=== PATIENT | male | born 1960 | race Two or more races ===

== ENCOUNTER 2018-12-14 12:57 | Observation (INO) | payer MEDICAID, OTHER ==
[~2018-12-14] VITALS: Ht 157.5 cm; Wt 82.4 kg
--- NOTE | 2018-12-14 13:53 | NUR ---
CT PENDING: REGISTRATION/LAB/XRAY FIRST
--- NOTE | 2018-12-14 14:05 | NUR ---
PT C/O DIZZINESS AND VISION CHANGES. IV ESTABLISHED WITH BLOOD DRAW AND PLACED ON MONITOR. XRAY AT BEDSIDE.
--- NOTE | 2018-12-14 14:06 | NUR ---
REPOR TO MEGAN RN
--- NOTE | 2018-12-14 14:18 | NUR ---
PT TO CT VIA [facility].
[2018-12-14 14:19] LABS: BASOPHILS # (AUTO) 0.04 x10^3/uL (0-0.1); BASOPHILS % (AUTO) 1 % (0-1); EOSINOPHILS # (AUTO) 0.12 x10^3/uL (0-0.4); EOSINOPHILS % (AUTO) 1 % (1-7); LYMPHOCYTES # (AUTO) 2.48 x10^3/uL (1-3.4); LYMPHOCYTES % (AUTO) 29 % (22-44); MD NO; MEAN CORPUSCULAR HEMOGLOBIN 29.3 pg (27.5-34.5); MEAN CORPUSCULAR HGB CONC 33.2 g/dL (33.2-36.2); MEAN CORPUSCULAR VOLUME 88.2 fL (81-97); MEAN PLATELET VOLUME 7.1 fL (7.4-10.4); MONOCYTES # (AUTO) 0.42 x10^3/uL (0.2-0.8); MONOCYTES % (AUTO) 5 % (2-9); NEUTROPHILS # (AUTO) 5.61 x10^3/uL (1.8-6.8); NEUTROPHILS % (AUTO) 65 % (42-75); PLATELET COUNT 275 x10^3/uL (130-400); RED BLOOD COUNT 5.52 x10^6/uL (4.38-5.82); RED CELL DISTRIBUTION WIDTH 14.1 % (9.4-14.8)
[2018-12-14 14:29] LABS: ALBUMIN 3.8 g/dL (3.4-5.0); ANION GAP 5 mmol/L (5-15); CHLORIDE 107 mmol/L (98-107)
[2018-12-14 14:32] LABS: ALANINE AMINOTRANSFERASE 46 U/L (12-78); ALKALINE PHOSPHATASE 90 U/L (45-117); BILIRUBIN,TOTAL 0.6 mg/dL (0.2-1.0); TOTAL PROTEIN 8.4 g/dL (6.4-8.2)
[2018-12-14 14:36] LABS: PROTHROMBIN TIME 10.5 Seconds (9.6-11.5)
--- NOTE | 2018-12-14 15:07 | NUR ---
DR THOMAS SPEAKING WITH PT THROUGH REGISTERED NURSE OBSTETRICS REGARDING TEST RESULTS AND PLAN OF CARE. WITH REGISTERED NURSE OBSTETRICS EXPLAINED TO PATIENT THAT HE WILL BE SEEN BY A HOSPITALIST AND EVENTUALLY GO TO A ROOM UPSTAIRS. GIVEN INSTRUCTIONS REGARDING CALL LIGHT AND TV CONTROLLER. PT STATES A SMALL AMOUNT OF DIZZINESS WHILE LYING IN GURNEY..PT ASKING FOR SOMETHING TO EAT AND VERBAL OK BY DR THOMAS.
--- NOTE | 2018-12-14 15:48 | NUR ---
PT TAKEN TO TELE FLOOR WITH [facility]. REPORTED TO SAMMI ZHENG.
[2018-12-14] MEDS ORDERED: GADOBUTROL 7.5 MMOL/7.5 ML PFS ONE (16:09)
[2018-12-14] MEDS ORDERED: BISACODYL 10 MG SUPP PR PRN (17:30)
[2018-12-14] MEDS ORDERED: ENOXAPARIN 40 MG/0.4 ML SQ SCH (17:30)
[2018-12-14] MEDS: LACTATED RINGERS 1,000 ML IV SCH ×2 (17:30→18:30)
[2018-12-14] MEDS ORDERED: ONDANSETRON ODT 4 MG PO PRN (17:30)
[2018-12-14] MEDS ORDERED: POLYETHYLENE GLYCOL 17 GM PACKET PO PRN (17:30)
[2018-12-14] MEDS ORDERED: ACETAMINOPHEN 325 MG TABLET PO PRN (17:30)
[2018-12-14] MEDS ORDERED: MECLIZINE CHEWABLE 25 MG TAB PO PRN (17:30)
[2018-12-14] MEDS ORDERED: ONDANSETRON 2MG/ML, 2ML IVPush PRN (17:30)
[2018-12-14] MEDS ORDERED: DOCUSATE 100 MG CAPSULE PO PRN (17:30)
[2018-12-14] MEDS ORDERED: ENALAPRILAT 1.25 MG/ML, 2ML IVPush PRN (17:30)
[2018-12-14] MEDS ORDERED: hydrALAzine 20 MG/ML, 1ML IVPush PRN (17:30)
[2018-12-14 18:00] LABS: TROPONIN I < 0.015 ng/mL (0.000-0.045)
[2018-12-14 19:27] VITALS: BP 124/72
[2018-12-14 21:53] VITALS: BP_SYST 128; BP_SYST 138; BP_DIAS 71; BP_DIAS 83
[2018-12-14 21:54] VITALS: BP 162/91
[2018-12-15] VITALS (7 sets, daily range): BP systolic 112–145; BP diastolic 69–91
[2018-12-15 05:56] LABS: MICROSCOPIC NOT IND
[2018-12-15] MEDS ORDERED: ASPIRIN 325 MG TABLET EC PO SCH (06:00)
[2018-12-15 06:05] LABS: CULTURE INDICATED? NO
[2018-12-15 06:07] LABS: BASOPHILS # (AUTO) 0.04 x10^3/uL (0-0.1); BASOPHILS % (AUTO) 0 % (0-1); EOSINOPHILS # (AUTO) 0.16 x10^3/uL (0-0.4); EOSINOPHILS % (AUTO) 2 % (1-7); LYMPHOCYTES # (AUTO) 3.49 x10^3/uL (1-3.4); LYMPHOCYTES % (AUTO) 35 % (22-44); MD NO; MEAN CORPUSCULAR HEMOGLOBIN 29.3 pg (27.5-34.5); MEAN CORPUSCULAR VOLUME 88.6 fL (81-97); MEAN PLATELET VOLUME 7.2 fL (7.4-10.4); MONOCYTES # (AUTO) 0.48 x10^3/uL (0.2-0.8); MONOCYTES % (AUTO) 5 % (2-9); NEUTROPHILS # (AUTO) 5.78 x10^3/uL (1.8-6.8); NEUTROPHILS % (AUTO) 58 % (42-75); PLATELET COUNT 248 x10^3/uL (130-400); RED BLOOD COUNT 5.27 x10^6/uL (4.38-5.82); RED CELL DISTRIBUTION WIDTH 14.1 % (9.4-14.8)
[2018-12-15 06:21] LABS: ANION GAP 7 mmol/L (5-15); CALCIUM 8.9 mg/dL (8.5-10.1); CHLORIDE 107 mmol/L (98-107)
[2018-12-15 06:51] LABS: CHOLESTEROL, TOTAL 131 mg/dL (140-239); CREATININE 0.78 mg/dL (0.7-1.3); HDL CHOL % 25 % (26-37); HDL CHOLESTEROL (DIRECT) 33 mg/dL (40-60); LDL CHOLESTEROL,CALCULATED 82 mg/dL (54-169); LDL/HDL RATIO 2.5 (0.5-3.0); TRIGLYCERIDES 82 mg/dL (50-200); VLDL CHOLESTEROL 16 mg/dL (0-25)
[2018-12-15] MEDS ORDERED: ASPI-515 PO (16:33)
== END 2018-12-15 19:40 | disposition home or self-care (01) ==
LOC: ED 13:56 → INTOOBSV 15:01 → EDIP 15:01 → 4WST 15:50
PROVIDERS: ADMIT Hospitalist; ATTEND Hospitalist
DX: J06.9 Acute upper respiratory infection, unspecified (principal); R00.2 Palpitations; J02.9 Acute pharyngitis, unspecified; I10 Essential (primary) hypertension; R00.1 Bradycardia, unspecified
CPT/HCPCS: 36415; 70450; 70553; 71045; 80048; 80053; 80061; 81003; 82607; 83735; 83880; 84100; 84443; 84484; 85025; 85610; 85730; 87081; 87880; 93005; 93306; 93880; 96360; 96361; 96372; 97161; 97165; 99284; A9585; G0378; J1650; J7120